=== PATIENT | female | born 1970 | race Hispanic/Latino ===

== ENCOUNTER 2021-03-15 07:57 | Emergency (ER) | payer OTHER, SELFPAY ==
--- NOTE | 2021-03-15 08:00 | DI.RAD.S_ITS ---
PROCEDURE: XR LUMBAR SPINE 2-3V INDICATIONS: pain after fall TECHNIQUE: 3 views of the lumbar spine were acquired. COMPARISON: [facility], , L-SPINE 2-3 VIEWS, 03/26/2013, 16:38. FINDINGS: Bones: Partially visualized lateral curvature of the spine, with levoscoliosis at the upper lumbar level. This appears progressed since the prior study No acute fracture identified. Multilevel degenerative endplate sclerosis and spurring. Diffuse facet arthropathy. Diffuse moderate disc space narrowing which is mildly, uniformly increased since the prior study from 03/26/13. Soft tissues: Overlying bowel gas pattern is normal. No suspicious soft tissue calcifications. IMPRESSION: No acute fracture identified. Suboptimal study sensitivity secondary to scoliosis and discogenic changes. If the patient's pain or other symptoms persist, consider further evaluation with MRI Interval worsening of scoliosis and mild progressive spondylosis. Dictated by: Francis Talavera M.D. on 03/15/2021 at 8:41 Approved by: Francis Talavera M.D. on 03/15/2021 at 8:43
--- NOTE | 2021-03-15 08:00 | DI.RAD.S_ITS ---
PROCEDURE: XR ELBOW RT MIN 3V INDICATIONS: pain after fall TECHNIQUE: 3 views of the elbow were acquired. COMPARISON: None. FINDINGS: Bones: No fractures or dislocations. No suspicious bony lesions. Soft tissues: No elbow joint effusion. No suspicious soft tissue calcifications. IMPRESSION: No fracture. If the patient's symptoms do not improve recommend followup radiographs in 10 days to assess for healing sclerosis/occult injury. Dictated by: Francis Talavera M.D. on 03/15/2021 at 8:39 Approved by: Francis Talavera M.D. on 03/15/2021 at 8:41
--- NOTE | 2021-03-15 08:02 | ED_ITS ---
HPI - General Adult General Chief complaint: Fall Stated complaint: GLF Time Seen by Provider: 03/15/21 08:00 Source: patient Mode of arrival: EMS Limitations: language barrier History of Present Illness HPI narrative: Patient is a 50-year-old female. The language line was used during the initial evaluation. She is brought in by EMS for evaluation of injuries that she sustained from a fall. Patient was at work. She was trying to work a machine when she fell backwards on her buttocks. She did hit her right elbow and has right elbow discomfort. She also reports lower back discomfort. No other injuries. Did not hit her head. No interventions prior to arrival. Related Data Previous Rx's Medication Instructions Recorded doxycycline hyclate 100 mg capsule 100 mg PO Q12H 7 Days #0 cap 06/12/17 Allergies Allergy/AdvReac Type Severity Reaction Status Date / Time Penicillins [PENICILLINS] Allergy Unknown TOLD SHE Unverified 07/31/17 12:26 WAS ALLERGIC A CHILD. Review of Systems Musculoskeletal Musculoskeletal: Reports system reviewed and no additional complaints, except as documented and Reports as per HPI Integumentary/Breasts Skin/Breast: Reports system reviewed and no additional complaints, except as documented and Reports as per HPI Neurologic Neurologic: Reports system reviewed and no additional complaints, except as documented and Reports as per HPI Hematologic/Lymphatic On Anticoagulants: No Patient History Medical History Patient denies medical problems Social History lives independently: Yes Exam Initial Vital Signs Initial Vital Signs: Vital Signs Temperature 98.0 F 03/15/21 08:29 Pulse Rate 65 03/15/21 08:29 Respiratory Rate 16 03/15/21 08:29 Blood Pressure 136/82 03/15/21 08:29 Pulse Oximetry 97 03/15/21 08:29 HENMT Head: normal to inspection and normocephalic Resp Effort & Inspection: normal respiratory effort Cardio Rate: regular rate GI Inspection: normal to inspection Palpation: soft Back/Spine/Pelvis Cervical Spine: No cervical spinal tenderness Thoracic/Lumbar Spine: paraspinal tenderness, No thoracic spinal tenderness and lumbar spinal tenderness Skin Other: Small 1 cm abrasion lateral aspect of the right elbow. Neuro General: patient alert, patient awake and moves all extremities Extrem Other: Left upper extremity bilateral lower extremities unremarkable. Pelvis is unremarkable. Right shoulder is unremarkable. Discomfort with flexion extension of the right elbow. Has discomfort with pronation and supination. Her right wrist is unremarkable. Course Orders Ordered: ED Orders 03/15/21 08:00 XR elbow RT min 3V Stat XR lumbar spine 2-3V Stat Vital Signs Vital signs: Vital Signs - 8 hr 03/15/21 08:29 Temperature 98.0 F Pulse Rate 65 Respiratory Rate 16 Blood Pressure 136/82 Pulse Oximetry 97 Medical Decision Making Imaging Data Lumbar spine x-ray: Radiologist's Impression: [address] [id number] XRay Report Signed Patient: Jose A Morin MR#: [id number] : 1970 Acct:[id number] Age/Sex: 50 / F Date of Service: 03/15/21 Loc: ED Accession Number: [id number] ?? Procedure: XR lumbar spine 2-3V Ordering Provider: Gianluca Theodore D.O. PROCEDURE:? XR LUMBAR SPINE 2-3V ? INDICATIONS:? pain after fall ? TECHNIQUE:? 3 views of the lumbar spine were acquired.? ? COMPARISON:? [facility], , L-SPINE 2-3 VIEWS, 03/26/2013, 16:38. ? FINDINGS:? ? Bones:? Partially visualized lateral curvature of the spine, with levoscoliosis at the upper lumbar level.? This appears progressed since the prior study ? ?No acute fracture identified. Multilevel degenerative endplate sclerosis and spurring.? Diffuse facet arthropathy.? Diffuse moderate disc space narrowing which is mildly, uniformly increased since the prior study from 03/26/13. ? Soft tissues:? Overlying bowel gas pattern is normal.? No suspicious soft tissue calcifications.? ? ? IMPRESSION:? ? No acute fracture identified.? Suboptimal study sensitivity secondary to scoliosis and discogenic changes. If the patient's pain or other symptoms persist, consider further evaluation with MRI ? Interval worsening of scoliosis and mild progressive spondylosis. ? Dictated by: Francis Talavera M.D. on 03/15/2021 at 8:41 ? ? Approved by: Francis Talavera M.D. on 03/15/2021 at 8:43?? Extremity x-ray #1: Radiologist's Impression: [address] [address] XRay Report Signed Patient: Jose A Morin MR#: [id number] : 1970 Acct:[id number] Age/Sex: 50 / F Date of Service: 03/15/21 Loc: ED Accession Number: [id number] ?? Procedure: XR elbow RT min 3V Ordering Provider: Gianluca Theodore D.O. PROCEDURE:? XR ELBOW RT MIN 3V ? INDICATIONS:? pain after fall ? TECHNIQUE:? 3 views of the elbow were acquired.? ? COMPARISON:? None. ? FINDINGS:? ? Bones:? No fractures or dislocations.? No suspicious bony lesions.? ? Soft tissues:? No elbow joint effusion.? No suspicious soft tissue calcifications.? ? ? IMPRESSION:? No fracture. If the patient's symptoms do not improve recommend followup radiographs in 10 days to assess for healing sclerosis/occult injury. ? ? ? Dictated by: Francis Talavera M.D. on 03/15/2021 at 8:39 ? ? Approved by: Francis Talavera M.D. on 03/15/2021 at 8:41 MDM Narrative Medical decision making narrative: X-ray show no signs of fractures. The contusion/abrasion on her right elbow he has no intervention here in the ER. No indication for further radiologic studies. Discussed this with the patient and daughter at bedside. They expressed understanding and agreement. Discharge Plan Departure Patient Disposition: Home Clinical Impression: Abrasion of elbow, right, Contusion of elbow, right, Lower back pain Instructions: DI for Low Back Pain Activity Restrictions/Additional Instructions: There were no fractures noted on the x-rays. No restrictions on your activities. I do recommend that you stay as active as possible. Return to the emergency department for any new or worsening symptoms Prescriptions: No Action doxycycline hyclate 100 MG capsule 100 mg PO Q12H 7 Days Qty: 0 0RF Referrals: Ariana Snell ARNP [Primary Care Provider] -
[2021-03-15 08:29] VITALS: BP 136/82; PULSE 65; RESP 16; TEMP 36.7; O2SAT 97
== END 2021-03-15 09:37 | disposition home or self-care (01) ==
PROVIDERS: Emergency Provider Emergency Medicine; PCP Nurse Practitioner
DX: S50.01XA Contusion of right elbow, initial encounter (principal); S50.311A Abrasion of right elbow, initial encounter; M54.50 Low back pain, unspecified; Y99.0 Civilian activity done for income or pay; W18.30XA Fall on same level, unspecified, initial encounter
CPT/HCPCS: 72100; 73080; 99283